=== PATIENT | female | born 2000 | race Caucasian/White ===

== ENCOUNTER 2025-03-05 08:00 | Emergency (ER) | payer OTHER ==
[~2025-03-05] VITALS: Ht 165.1 cm; Wt 82.0 kg
[2025-03-05 08:03] VITALS: O2SAT 99
[2025-03-05] MEDS: IBUPROFEN 600MG TABLET PO ONE (08:19)
[2025-03-05] MEDS: ACETAMINOPHEN 325MG TABLET PO ONE (08:19)
[2025-03-05 09:19] LABS: HCG SCREEN NEGATIVE
[2025-03-05 10:08] VITALS: BP 143/72; PULSE 85; RESP 18; TEMP 35.7; O2SAT 100
[2025-03-05] MEDS ORDERED: CYCL10TA21 MT (10:11)
[2025-03-05] MEDS ORDERED: IBUP-2029 MT (10:11)
== END 2025-03-05 10:32 | disposition home or self-care (01) ==
LOC: ER 08:00
DX: R03.0 Elevated blood-pressure reading, without diagnosis of hypertension (principal); M25.551 Pain in right hip; M25.552 Pain in left hip; M25.512 Pain in left shoulder; J45.909 Unspecified asthma, uncomplicated; V89.2XXA Person injured in unspecified motor-vehicle accident, traffic, initial encounter; Y93.89 Activity, other specified; Y92.89 Other specified places as the place of occurrence of the external cause; Y99.8 Other external cause status
CPT/HCPCS: 84703; 72170; 73030; 99284; Z7610 ×2; A4606